=== PATIENT | female | born 1980 | race Caucasian/White ===

== ENCOUNTER 2023-07-15 16:06 | Emergency (ER) | payer MEDICAID ==
[~2023-07-15] VITALS: Ht 162.6 cm; Wt 72.7 kg
[~2023-07-15 16:06] MED LIST: CYCL-1 PO; METH-360 PO
[2023-07-15 16:19] VITALS: BP 139/76; PULSE 84; RESP 18; TEMP 98.2; O2SAT 100
[2023-07-15] MEDS ORDERED: amox tr/potassium clavulanate 875/125mg TAB PO ONE (17:45)
[2023-07-15] MEDS ORDERED: AMOX-580 PO (17:46)
== END 2023-07-15 18:13 | disposition home or self-care (01) ==
LOC: ER 16:06
DX: K04.7 Periapical abscess without sinus (principal); R59.0 Localized enlarged lymph nodes; F12.90 Cannabis use, unspecified, uncomplicated; F15.90 Other stimulant use, unspecified, uncomplicated; Z72.89 Other problems related to lifestyle; Z88.8 Allergy status to other drugs, medicaments and biological substances; Z79.2 Long term (current) use of antibiotics; Z79.899 Other long term (current) drug therapy
CPT/HCPCS: 99283

== ENCOUNTER 2024-12-08 09:18 | Emergency (ER) | payer MEDICAID ==
[~2024-12-08] VITALS: Ht 162.6 cm; Wt 91.9 kg
[2024-12-08 10:05] VITALS: BP 130/68; PULSE 77; RESP 16; TEMP 98.4; O2SAT 100
[2024-12-08] MEDS ORDERED: CLIN150C2 PO (10:53)
== END 2024-12-08 11:14 | disposition home or self-care (01) ==
LOC: ER 09:19
DX: K00.6 Disturbances in tooth eruption (principal); K04.7 Periapical abscess without sinus; K08.89 Other specified disorders of teeth and supporting structures; F12.90 Cannabis use, unspecified, uncomplicated; F15.90 Other stimulant use, unspecified, uncomplicated; J45.909 Unspecified asthma, uncomplicated; Z88.7 Allergy status to serum and vaccine; Z88.8 Allergy status to other drugs, medicaments and biological substances; Z72.89 Other problems related to lifestyle; Z79.899 Other long term (current) drug therapy
CPT/HCPCS: 99283

== ENCOUNTER 2025-05-25 16:38 | Emergency (ER) | payer MEDICAID ==
[~2025-05-25] VITALS: Ht 162.6 cm; Wt 81.0 kg
[2025-05-25 16:41] VITALS: BP 141/89; PULSE 106; RESP 18; O2SAT 98
--- NOTE | 2025-05-25 16:43 | Physician Documentation ---
History of Present Illness ~ Stated Complaint: GENERAL ILLNESS Time Seen by MD: 17:30 [facility] Patient is seen today with complaints of nausea and vomiting for little over a week. Patient states she has had a loose bowel movement once a day or so during that time. Patient does admit to smoking and/or use of cannabis quite heavily for her whole life. Patient denies any fevers or chills or body aches. Patient has no other concern or complaint at this time. Patient states he has been taking some Zofran from a friend which has significantly improved her nausea. She states she has only had a few episodes of vomiting a couple of days ago and has not vomited yesterday or today but does still feel nauseous. Medication Reconciliation Allergies: Coded Allergies: albuterol (Verified Allergy, Unknown, 12/08/24) albuterol sulfate (Verified Allergy, Unknown, 12/08/24) pertussis vaccine,adsorbed (Verified Allergy, Unknown, 12/08/24) Scheduled Methocarbamol (Robaxin-750), 1 TAB PO Q12H Scheduled PRN Cyclobenzaprine* (Cyclobenzaprine*), 1 TABLET PO Q8H PRN for muscle spasms Past Medical History Alcohol Use: Occasionally Drug Use: marijuana, methamphetamine Review of Systems Constitutional: Denies: fever, chills Eyes: Denies: discharge, itching ENT: Denies: ear pain, nose discharge, throat pain Respiratory: Denies: cough, shortness of breath Cardiovascular: Reports: no symptoms reported Gastrointestinal: Denies: abdominal pain, nausea, vomiting Genitourinary: Denies: burning, dysuria Female Genitalia: Denies: vaginal discharge, pelvic pain Neurological: Denies: headache, dizziness Musculoskeletal: Denies: pain, joint pain, muscle pain Integumentary: Denies: rash, lesions Allergic/Immunologic: Denies: hives, itching Hematologic/Lymphatic: Reports: no symptoms reported Endocrine: Reports: no symptoms reported Psychiatric: Reports: no symptoms reported Physical Exam Physical Exam General: Awake and Alert, no acute distress. HEENT: Conjunctiva pink, Sclera clear, Mucus Membranes moist. Neck: Supple without masses and tenderness. Resp: Unlabored. Lungs clear to auscultation bilaterally. Heart: Regular Rate and rhythm, normal S1 and S2 without murmur, rub or gallop. Abdomen: Soft and non tender no organomegaly Extremities: No cyanosis,clubbing or edema. Skin: Warm and Dry. Progress Results/Orders Results/Orders Vital Signs 05/25/25 16:41 Temp 96.7 Pulse 106 Resp 18 B/P (MAP) 141/89 Pulse Ox 98 Medical Decision Making Findings Patient is seen today with complaints of nausea and vomiting for little over a week. Patient states she has had a loose bowel movement once a day or so during that time. Patient does admit to smoking and/or use of cannabis quite heavily for her whole life. Patient denies any fevers or chills or body aches. Patient has no other concern or complaint at this time. Patient states he has been taking some Zofran from a friend which has significantly improved her nausea. She states she has only had a few episodes of vomiting a couple of days ago and has not vomited yesterday or today but does still feel nauseous. Patient was given dose of Zofran 8 mg ODT in the ED tonight. Prescription of Zofran 4 mg one tab two to 3 times a day ODT sent to patient's pharmacy to be used as directed. I strongly advised patient discontinue use of any cannabis. She voiced understanding. Return to ED with any worsening, concerning or changing symptoms. Departure Disposition: 01 HOME / SELF CARE / HOMELESS Impression: Primary Impression: Nausea & vomiting Qualified Codes: R11.2 - Nausea with vomiting, unspecified Discharge Instructions: Cannabinoid Hyperemesis Syndrome Additional Instructions: Patient was given dose of Zofran 8 mg ODT in the ED tonight. Prescription of Zofran 4 mg one tab two to 3 times a day ODT sent to patient's pharmacy to be used as directed. I strongly advised patient discontinue use of any cannabis. She voiced understanding. Return to ED with any worsening, concerning or changing symptoms. Referrals: NO PRIMARY CARE PROVIDER (PCP) Prescriptions ONDANSETRON ODT 4mg tablet (ONDANSETRON ODT) 4 Mg Tab.rapdis 4 MG PO BID for 7 Days, #14 TAB Prov: IRVIN ZHAO 05/25/25 Signature Scribe Signature: No scribe Attestation: No scribe VICKIE LAW NP May 25, 2025 16:43 IRVIN ZHAO May 25, 2025 18:13
[2025-05-25] MEDS ORDERED: ONDA-243 PO (18:23)
[2025-05-25] MEDS: ondansetron 4mg rapidly disintigrating tab PO STA (18:35)
[2025-05-25 18:36] VITALS: TEMP 96.7
== END 2025-05-25 18:38 | disposition home or self-care (01) ==
LOC: ER 16:39
DX: R11.2 Nausea with vomiting, unspecified (principal); Z88.7 Allergy status to serum and vaccine
CPT/HCPCS: 99283